=== PATIENT | male | born 1955 | race Hispanic/Latino ===

== ENCOUNTER 2020-12-02 09:07 | Emergency (ER) | payer MEDICARE ==
[2020-12-02] MEDS ORDERED: Lidocaine 1% 20 ML MDV ONE (09:30)
[2020-12-02] MEDS ORDERED: Boostrix 0.5 ML (Tdap) VIAL ONE (09:30)
== END 2020-12-02 10:18 | disposition home or self-care (01) ==
LOC: MADERS 09:07
DX: S60.453A Superficial foreign body of left middle finger, initial encounter (principal); I10 Essential (primary) hypertension; Z79.899 Other long term (current) drug therapy; W45.8XXA Other foreign body or object entering through skin, initial encounter
CPT/HCPCS: 64450; 90715